=== PATIENT | female | born 2000 | race Caucasian/White ===

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

== ENCOUNTER 2024-05-13 01:17 | Outpatient (CLI) | payer OTHER, SELFPAY ==
--- OUTSIDE RECORDS SUMMARY | 2024-05-13 01:19 | XMS_ITS | Encounter Summary ---
Author Organization [facility] Address [facility] [place] [address] Care Team Providers Care Petroleum Inspector Supervisor Name Role Phone Geovanni Anderson MD Primary Care Provider [phone] Reason for Visit * Reason Comments Acne Encounter Details Date Type Department Care Team (Late st Contact Info) Description 12/18/2015 8:00 AM EST Office Visit Dermatology at [place] [address] [place] [id number] Johnny Felix MD [address] [facility] [place] [address] Acne vulgaris Social History Tobacco Use Types Packs/Day Years Used Date Smoking Tobacco: Never Assessed Sex and Gender Information Value Date Recorded Sex Assigned at Not on file Gender Identity Not on file Sexual Orientation Not on file documented as of this encounter Patient Instructions * Patient Instructions* Sheri Eddy LPN - 12/18/2015 8:12 AM EST Images from the original note were not included. [facility] Acne: After Your Visit Your Care Instructions Acne is a skin problem that shows up as blackheads, whiteheads, and pimples. It most often affects the face, neck, and upper body. Acne occurs when oil and skin cells clog the skin's pores. Acne usually starts during the teen years and often lasts into adulthood. Gentle cleansing every day controls most mild acne. If home treatment does not work, your doctor may prescribe creams, antibiotics, or a stronger medicine called isotretinoin. Sometimes control pills help women who havemonthly acne flare-ups. Follow-up care is a saavedra part of your treatment and safety. Be sure to make and go to all appointments, and call your doctor if you are having problems. It???s also a good idea to know your test results and keep a list of the medicines you take. How can you care for yourself at home? ?? Gently wash your face 1 or 2 times a day with warm (not hot) water and a mild soap or cleanser. Always rinse well. ?? Use an yuvz-[id number]-[id number] lotion or gel that contains benzoyl peroxide. Start with a small amount of 2.5% benzoyl peroxide and increase the strength as needed. Benzoyl peroxide works well for acne, but you may need to use it for up to 2 months before your acne starts to improve. ?? Apply acne cream, lotion, or gel to all the places you get pimples, blackheads, or whiteheads, not just where you have them now. Follow the instructions carefully. If your skin gets too dry and scaly or red and sore, reduce the amount. For the best results, apply medicines as directed. Try not to miss doses. ?? Do not squeeze or pick pimples and blackheads. This can cause infection and scarring. ?? Use only oil-free makeup, sunscreen, and other skin care products that will not clog your pores. ?? Wash your hair every day, and try to keep it off your face and shoulders. Consider pinning it back or cutting it short. When should you call for help? Watch closely for changes in your health, and be sure to contact your doctor if: ?? You have tried home treatment for 6 to 8 weeks and your acne is not better or gets worse. Your doctor may need to add to or change your treatment. ?? Your pimples become large and hard or filled with fluid. ?? Scars form after pimples heal. ?? You feel sad or hopeless, lack energy, or have other signs of depression while you are taking the prescription medicine isotretinoin. ?? You start to have other symptoms, such as facial hair growth in women or bone and muscle pain. Where can you learn more? Visit our health information library at [email or web address] You can also view health information on [employer] [place], your personal patient account. Log in or sign up today. Enter V108 in the search box to learn more about Acne: After Your Visit. ?? [id number] [employer]. Care instructions adapted under license by [facility]. This care instruction is for use with your licensed healthcare professional. If you have questions about a medical condition or this instruction, always ask your healthcare professional. [employer] disclaims any warranty or liability for your use of this information. Content Version: 10.4.382045; Current as of: January 04, 2014 documented in this encounter Progress Notes * Johnny Felix MD - 12/18/2015 8:25 AM EST Problem: Acne vulgaris. Donita is a 15-year-old girl who has started to develop significant acne on the forehead, lateral cheeks, upper back, and chest. She was given a prescription for tretinoin 0.05% gel by Kandi Middleton on November 27, 2015, but unfortunately has found this to be too drying and irritating. She has not been using it; she stopped it. Her mother, Harini, is with her and states that Donita' father apparently had bad acne as an adolescent. The patient is referred today by Kandi Middleton. Physical examination reveals a 15-year-old who is brown eyed and reddish-brown hair and very fair skin. She is wearing a generous amount of makeup and has inflammatory papules on the upper forehead, lateral temples, and also on the upper back and upper chest. Fortunately, these are not scarring; they are not cystic or conglobate lesions. She also has ynet-[id number]-[id number] inflammatory comedonal acne of the forehead and cheeks. Assessment and Plan: Acne vulgaris in a 15-year-old adolescent. a. The patient is using water-based makeup. b. She is using Neutrogena as a facial wash for her face. We discussed also the utility of Dove and Ivory fragrance-free bar soaps. c. I recommended that she begin minocycline 100 mg one p.o. at bedtime for a week, and then one p.o. b.i.d. thereafter; #60 dispensed with three refills. Return to clinic in six weeks for repeat check. d. Begin also benzoyl peroxide 2.5% to 5% cream, applying to face in the mornings after washing. e. Begin gentler tretinoin 0.025% cream, applying sparingly at bedtime to face one-half hour after washing in the evenings. f. Return to clinic in a month and a half for repeat check. COPY: José Moore, INDUSTRIAL MECHANIC documented in this encounter Plan of Treatment Not on file documented as of this encounter Visit Diagnoses Diagnosis Acne vulgaris Other acne documented in this encounter Care Teams Petroleum Inspector Supervisor Relationship Specialty Start Date End Date Geovanni Anderson MD [address] [place] [address] PCP - General Pediatrics 12/18/15 03/10/22 documented as of this encounter
--- OUTSIDE RECORDS SUMMARY | 2024-05-13 01:19 | XMS_ITS | Encounter Summary ---
Author Organization [facility] Address [facility] [place] [address] Care Team Providers Care Political Research Scientist Name Role Phone Geovanni Anderson MD Primary Care Provider Reason for Visit * Reason Comments Follow-up Encounter Details Date Type Department Care Team (Late st Contact Info) Description 10/13/2016 4:15 PM EST Office Visit Dermatology at [place] [address] [facility] [place] [phone] Johnny Felix MD [address] [facility] [place] [place], [place] [id number] Acne vulgaris Social History Tobacco Use Types Packs/Day Years Used Date Smoking Tobacco: Never Sex and Gender Information Value Date Recorded Sex Assigned at Not on file Gender Identity Not on file Sexual Orientation Not on file documented as of this encounter Progress Notes * Johnny Felix MD - 10/13/2016 4:15 PM EST PROBLEM: Followup acne vulgaris. Donita follows up with her mother Gabriela. She has not used her acne medicines for about a month, neither the minocycline, nor the tretinoin cream and her acne has remained clear, which as it has really ever since I saw her last when I had her using both of these things in combination on a more regular basis. PHYSICAL EXAMINATION: Reveals a pleasant 16-year-old who is brown eyed and reddish brown hair and very fair skinned, who has no active acne on the forehead, cheeks or temples. She has a few erythematous macules still present on her upper back and upper chest, but they are not active and certainly not scarring. ASSESSMENT AND PLAN: Acne vulgaris in a 16-year-old currently quiescent. a. Agree with holding minocycline and holding tretinoin. b. In case of recurrence, go back to minocycline 100 mg p.o. daily. c. In case of recurrence, also resume tretinoin 0.025% cream applying to her chest regularly. d. The patient is currently using a medicated acne wash, continue with that. Return to clinic her p.r.n. CC: Kandi Middleton APRN, SMOKE AND FLAME SPECIALIST documented in this encounter Plan of Treatment Not on file documented as of this encounter Visit Diagnoses Diagnosis Acne vulgaris Other acne documented in this encounter Care Teams Political Research Scientist Relationship Specialty Start Date End Date Geovanni Anderson MD [address] [place] [address] PCP - General Pediatrics 12/18/15 03/10/22 documented as of this encounter
--- OUTSIDE RECORDS SUMMARY | 2024-05-13 01:19 | XMS_ITS | Encounter Summary ---
Author Organization Formerly [facility], [facility] Address [facility] [place] [address] Care Team Providers Care Roundhouse Supervisor Name Role Phone Geovanni Anderson MD Primary Care Provider [phone] Reason for Visit * Consultation (Routine) - Closed Specialty Diagnoses / Procedures Referred By Contac t Referred To Contact Psychiatry Diagnoses anxiety and depression Jennifer Singh MD [address] [place] [address] [place] [address] [facility] [address] [place] [address] Referral ID Status Reason Start Date Expiration Date V isits Requested Visits Authorized [id number] Closed Consult, [facility] 09/03/2017 09/03/2018 1 1 Encounter Details Date Type Department Care Team (Late st Contact Info) Description 09/24/2017 1:00 PM EST Office Visit Psychiatry [place] [address] Katty Gilliland MD [facility] [place] [address] Depression, unspecified depression type; Anxiety Social History Tobacco Use Types Packs/Day Years Used Date Smoking Tobacco: Never Sex and Gender Information Value Date Recorded Sex Assigned at Not on file Gender Identity Not on file Sexual Orientation Not on file documented as of this encounter Last Filed Vital Signs Vital Sign Reading Time Taken Comments Blood Pressure 105/63 09/24/2017 12:42 PM EST Pulse 76 09/24/2017 12:42 PM EST Temperature - - Respiratory Rate - - Oxygen Saturation - - Inhaled Oxygen Concentration - - Weight 72.6 kg (160 lb) 09/24/2017 12:42 PM EST Height 166.4 cm (5' 5.5) 09/24/2017 12:42 PM ES T Body Mass Index 26.22 09/24/2017 12:42 PM EST Body Mass Index Percentile 88.63% 09/24/2017 12: 42 PM EST Growth Chart: [facility] (Girls, 2- 20 Years) documented in this encounter Progress Notes * Katty Gilliland MD - 09/24/2017 1:00 PM EST PSYCHIATRIC DIAGNOSTIC EVALUATION WITH MEDICAL SERVICES (CPT 94250) Patient Name: Donita Anne : 2000 Location and Clinic: Child Psychiatry 5D Clinic Encounter Date: 09/24/2017 Examining Provider: Katty Gilliland M.D. (resident) and Bre Luevano M.D. (attending) Referring Provider: Jennifer Singh MD Primary Physician: Geovanni Anderson MD Information Source: Patient. Jalyn Anne (biological parents). Completed C&E packet. Guardian: Jalyn Carloson and Jovani Omid Patient Identification: Donita Anne is a 17 y.o. female from [place], [place]. She is in the 11th grade at [employer]. Donita was referred for evaluation of anxiety and depression. History of Present Illness: Donita states that she experiences intense anxiety, without trigger. She describes feeling panic,choked up, like crying, and unable to stop. She does not want to cry in front of peers/ teachers. As a result, she has missed many days of school (26) this year and is falling behind. She has been able to work shifts at [employer], noting the difference is the people [at work and at school]. She denies any bullying or problems with classmates. She has close girlfriends at school and is in a currently stable relationship with a boyfriend of 2.5 years. Regarding depressive symptoms, she endorses unexplainable, low mood daily, with passive suicidal thoughts of wanting to disappear at least once weekly. These feelings are difficult for her to explore and/or verbalize, but she agrees that she is equally depressed as she is anxious. She has a history of cutting on and off since she was 13 years old, last episode over 6 months ago. She convincingly denies plan, intent, or a history of suicide attempts. Her sleep has always been poor in that she stays awake past midnight and sleeps about 5- 6 hours nightly, interrupted. No history of sustained irritable mood, manic symptoms, temper outbursts, obsessions/compulsions, disordered eating, enuresis, encopresis, abnormal or involuntary movements, psychosis, sleep disturbance or other psychiatric symptoms except for those noted above. Donita does not participate in any school activities since attending [employer], which eliza much larger high school than her former middle school. She works at [employer] about 20 hours per week (short 2 hour shifts during weekdays and longer shifts on weekends), during which she is the [employer] piest. Otherwise, after school, she largely isolates in her room with her iPad (school work is electronically based) and phone. She has been sexually active with her boyfriend since spring 2015 and reports practice of safe intercourse. No alcohol (has tried in the past) or illicit drug use were elicited. On full review of medical treatment, Donita has not been using tretinoin for acne and her menstrual cycle has been irregular (unpredictable timing and duration) after receiving the Nexplanon implant in fall 2015. Donita's parents confirm the above information. Of note, they report noticing a change spring 2016, during which Donita missed two consecutive weeks of school after a temporary break up with her boyfriend. This year, she has missed 26 days! according to her mother. Donita has not seemingly had problems with school until this year. Her parents did not report significant psychiatric symptoms observed; Donita has been isolative and does not share her feelings. The history of cutting was recalled toward the end of the interview. Donita's mother states that she herself similarly had a rough adolescent transition and reports on the family history documented below. Both Donita and her parents are amenable to a trial of SSRI medication, of which indications and benefits/side effects were reviewed. Screening Assessments: Donita and Donita's parents completed various behavioral health screening instruments. Additionally Donita's teacher(s) completed the [place]. Measure Symptoms Cut-off Parent: (Mom) Parent: (Dad) Patient: Teacher: Teacher: CIS Impairment >[phone] 0 0 [place] Inattention >5 0 2 6 Hyperactivity >5 0 0 0 ODD >3 4 CD >2 1 ODD/CD >2 0 0 Aggression >0 0 0 0 Anxiety/Depression >2 5 6 1 MFQ Depression >7 10 14 Suicidality >0 0 4 PHQ-9 Total Score >9 3 19 Suicidality >0 0 1 MDQ Rowena >4 1 1 Simultaneous sx? Yes No No Severity Yes No No Psychosis >0 0 0 Anxiety Anxiety sx >3 3 0 OCD sx >0 0 0 TESI Trauma >0 0 AQ Autism sx >5 CRAFFT Risk behaviors >0 0 Psychiatric and Treatment History: Donita started seeing a therapist since the 8th grade, after experiencing bullying and engaging in cutting. She currently sees Cheyenne Gurrola in [facility] (since 2015). She has a history of cutting since age 13 (8th grade), most recent episode was early 2017. Diagnoses: None No prior hospitalizations. No suicide attempts. Past/Current medication trials: None No ETOH, tobacco, or illicit substance use. Medical History: Donita is prescribed minocycline and tretinoin since 2015 for acne, with rare/if at all use. Donita received a subdermal Nexplanon implant, for control in fall 2015. She reports extremelyirregular cycles since the implant. Family Psychiatric and Medical History: Biological Mother: she reports history of depression, anxiety, mood swings, history of baby blues; in psychotherapy, took Paxil in the past, reacted to Prozac (more angry, throwing items), currently taking citalopram, bupropion, recently started on lamotrigine Biological Father: none reported Biological Brother: attention problems reported by mother No family history of bipolar disorder, schizophrenia, substance use disorder, or completed suicides. No family history of sudden, unexplained deaths, cardiac disease, seizures, or diabetes mellitus. Family Profile & Living Situation: Donita lives in [facility] with her biological (unmarried) parents and 15 year-old biological brother. Her mother works as a [facility] [facility] [employer] clinical administrative secretary and her father works as a quick. Donita denies any relational problems at home. Development History: Donita is the product of a full-term and spontaneous vaginal delivery. weight was 7lbs 14 ounces. No in utero exposures or significant maternal illnesses during . Early developmental milestones, including first words, first sentences, walking, and toilet training were all reached within normal limits. Trauma/Abuse History: Donita denies a history of neglect and emotional, physical, and sexual abuse. This was confirmed in interview alone. Family denies any history of abuse. School History: Donita is in 11th grade at [employer]. She has not received IEP or 504 plan; a 504 plan was started in August 2017 to facilitate her passing of classes due to absences. She has good friends at school. Current Medications: Outpatient Prescriptions Marked as Taking for the 09/24/17 encounter (Office Visit) with Katty Gilliland MD Medication Sig Dispense Refill ??? etonogestrel (NEXPLANON) 68 mg Implant by Subdermal route. ??? minocycline (MINOCIN;DYNACIN) 100 mg Capsule take 1 capsule by mouth twice a day 0 ??? tretinoin (RETIN-A) 0.025 % Cream 0 Allergies: No Known Allergies Vitals: Vitals Office Visit from 09/24/2017 in Psychiatry and Behavioral Health at [place] Weight - Scale 72.6 kg (160 lb) Height 166.4 cm (5' 5.5) BSA (Calculated - sq m) 1.83 sq meters BMI (Calculated) 26.22 Heart Rate 76 BP 105/63 Musculoskeletal Exam: No overt signs of atrophy. Normal gait and station. Neurological Exam: No tics, tremors. Cranial nerves grossly intact with no overt asymmetries. Mental Status Examination: Donita is a 17 y.o. female who appears older than her stated age, appropriately groomed and dressed in a sweatshirt, leggings, and boots, with heavy make up and red-dyed hair. She engages with good eye contact and is pleasant in conversation. Behavior is cooperative, mostly forthcoming. Activity level is within normal limits. Speech is normal in rate and volume without articulation problems, and language development is appropriate. There are no vocal or motor tics noted. Age-appropriate gross and motor coordination. Mood is presently ???okay?? . Affect appears mood-congruent, mildly restricted, but reactive to content. She becomes teary-eyed when she has difficulty describing [her] feelings.?? Sensorium is alert and oriented to person, place, and time. Recent and remote memory are grosslyintact. Fund of knowledge is average. Attends to conversation without difficultly. Concentration isgood. Thought processes are goal directed, logical, and coherent. There are no looseness or associations or flight of ideas. No delusional or obsessive thoughts were elicited. There are no overt auditory or visual hallucinations observed. Denies suicidal or homicidal ideations. Her insight and judgment are fair and fair. Assessment and Formulation: Donita Anne is a 17 y.o. female with symptoms of depression and anxiety, who presents for consultation for psychotropic medications. Biologically, she has a strong maternal family history that may be contributing to the emergence of mood symptoms causing dysfunction. Over the past year, Donita hasbecome more isolative, sad or panicked for seemingly no reason, perhaps over-relying on avoidanceand/or distraction of media/social media to cope with emotional and relationship struggles. Psychotherapy is helpful for Donita and has reportedly produced fair results. The patient and her parents, after speaking with her therapist and PCP, feel that she could benefit from the aid of antidepressant medication to help with her progress. During this visit, we discussed a multimodal approach to treatment of Donita's depression and anxiety. They are interested in starting a SSRI trial of sertraline and monitor symptoms while continuing individual therapy. DSM 5 Diagnoses: Unspecified depressive disorder; unspecified anxiety disorder Recommendations and Plan: 1. Psychosocial Interventions ?? Individual Therapy: It is recommended that Donita continue to address her symptoms of anxiety anddepression. Cognitive-Behavioral Therapy (CBT) has the most empirical support for helping children and adolescents improve coping skills and reduce symptoms. This type of treatment is typically time-limited and will provide Donita with strategies that can be used across her lifetime. The family has been encouraged to share this evaluation with Donita's current therapist. ?? If her current therapist has more information to share, it is encouraged that she may reach out to this office. Written consent was provided today. ?? It is recommended that Donita attempt to attend school on days that she will also be working after school, as there may be consequences and risks of truancy charge. 2. Medications ?? Start sertraline 25mg daily to monitor for any gastrointestinal, activating, or sedating side effects. After a week, may increase to sertraline 50mg daily and continue for 6-8 weeks. May consider increasing to sertraline 100mg daily for a full trial of efficacy. ?? These recommendations will be communicated to Donita's PCP. The family was encouraged to follow up with Dr. Singh/Emi/Justin to further discuss these recommendations. 3. Academic Interventions ?? Donita is experiencing difficulties within the school environment. These difficulties are likely due to Donita's anxiety, and are likely to persist even with continued mental health treatment. The severity of Donita's difficulties may be impacting their academic and/or social development. Thus, it recommended that Donita be evaluated for her eligibility for accommodations or special educational services ?? Reportedly, a 504 plan has recently been started to facilitate passing classes due to absence. Recommended Follow-Up: This concludes Donita's evaluation in the child and adolescent psychiatry clinic here at [facility]. Theserecommendations will be communicated to Donita's PCP, Geovanni Anderson MD/ Kandi Middleton/Jennifer Singh. If additional questions or concerns arise in the future, we would be willing to see Donita again in consultation and/or review her response to the recommendations. Patient Instruction/Education Provided: Patient and her parents were provided verbal instructions regarding diagnosis and recommendations. * Bre Renee MD - 09/24/2017 1:00 PM EST I met with the patient and both parents, along with resident, Dr. Katty Gilliland I have reviewed the chart and read the resident's note. The assessment and plan were formulated in discussion with me and are documented in the note. I agree with the details as documented. Issues Addressed: Donita is a 17 years old female, [employer] Student, whom has been struggling with ongoing depression and anxiety despite consistent therapy. She presents referred by her PCP for consultation of her anxiety and depressive symptoms and recommendations for medication management. ??? We highly encouraged Donita to continue with individual therapy. ??? Discussed with the family the importance of having a plan for Donita to be reincorporated into school and be provided some supports. It would be important to identify why she has been avoiding school and is motivated and with a good attitude when it is related to work. The importance of Parentallimit setting as it relates to this ambivalent presentation was discussed. ??? Discussed with the family the synergistic effect that the combination of therapy and medications can have for her symptoms. Sertraline benefits and side effects as well as recommended titration under the supervision of their primary care providers. ??? Although this was a consultation for Donita, we encouraged them to have their rn clinical appeals or themselves reach out to our clinic in case there was any decompensation of the symptoms. Dr. Gilliland provided her card with her contact information. documented in this encounter Plan of Treatment Not on file documented as of this encounter Visit Diagnoses Diagnosis Depression, unspecified depression type Anxiety Anxiety state, unspecified documented in this encounter Care Teams Roundhouse Supervisor Relationship Specialty Start Date End Date Geovanni Anderson MD [address] [place] [address] PCP - General Pediatrics 12/18/15 03/10/22 documented as of this encounter
--- OUTSIDE RECORDS SUMMARY | 2024-05-13 01:19 | XMS_ITS | Encounter Summary ---
Author Organization [facility] Address [facility] [place] [address] Care Team Providers Care Reception Interviewer Name Role Phone Geovanni Anderson MD Primary Care Provider [phone] Reason for Visit * Reason Comments Acne Encounter Details Date Type Department Care Team (Late st Contact Info) Description 02/14/2016 4:45 PM EDT Office Visit Dermatology at [place] [address] [place] [address] Johnny Felix MD [address] [facility] [place], [place] [id number] Acne vulgaris Social History Tobacco Use Types Packs/Day Years Used Date Smoking Tobacco: Never Sex and Gender Information Value Date Recorded Sex Assigned at Not on file Gender Identity Not on file Sexual Orientation Not on file documented as of this encounter Progress Notes * Johnny Felix MD - 02/14/2016 4:55 PM EDT Problem: Followup acne vulgaris. Donita follows up today with her mother, Harini. She is doing better but still is having issues with her back and chest, less so on her forehead and cheeks. She is tolerating the tretinoin 0.025% cream well but has not yet found a benzoyl peroxide cream to use for her face. She has been tolerating the minocycline 100 mg one p.o. b.i.d. without side effects. Physical examination reveals a pleasant 15-year-old who is brown eyed and reddish brown hair and very fair skinned who has still a few inflammatory papules on the forehead but few on the temples and cheeks. She still has some inflammatory lesions on the upper back and upper chest. They are not scarring, and they are not cystic nor conglobate. The mild to moderate inflammatory comedonal acne of the forehead and cheeks is improved. Assessment and Plan: Acne vulgaris in a 15-year-old adolescent. a. The patient is using water-based makeup. b. Recommend that she obtain a benzoyl peroxide, either 2.5 or 5% water-based gel, applying to face in the morning after washing. c. Continue the tretinoin 0.025% cream, applying at bedtime to face. d. Continue minocycline. She has two more refills. Continue the 100 mg one p.o. b.i.d. for another two months, then return to clinic for repeat check. e. If not improving at that time, could consider a trial of Bactrim. Isotretinoin was not discussed today but would also be a potential option for her. Note: Oral control pills for acne control might also be expected to be quite efficacious for her. We will discuss this option with Kandi Emi if there has not been improvement by the time of her next visit. COPY: Kandi Middleton, Kelsy.P.RDesN., F.N.P. documented in this encounter Plan of Treatment Not on file documented as of this encounter Visit Diagnoses Diagnosis Acne vulgaris Other acne documented in this encounter Care Teams Reception Interviewer Relationship Specialty Start Date End Date Geovanni Anderson MD [address] [place] [address] [place] [address] PCP - General Pediatrics 12/18/15 03/10/22 documented as of this encounter
--- OUTSIDE RECORDS SUMMARY | 2024-05-13 01:19 | XMS_ITS | Clinical Summary ---
Author Organization [place] [address] Care Team Providers Care Drupal Php Developer Name Role Phone Unknown Primary Care Provider Unavailabl e Allergies No known active allergies Medications Medication Sig Dispensed Refills Start Date End Date Status tretinoin (RETIN-A) 0.025 % Cream 0 01/29/2016 Active minocycline (MINOCIN;DYNACIN) 100 mg Capsule take 1 capsule by mouth twice a day 0 06/13/2016 Active etonogestrel (NEXPLANON) 68 mg Implant by Subdermal route. Activ e Active Problems No known active problems Social History Tobacco Use Types Packs/Day Years Used Date Smoking Tobacco: Never Sex and Gender Information Value Date Recorded Sex Assigned at Not on file Gender Identity Not on file Sexual Orientation Not on file Last Filed Vital Signs Vital Sign Reading [...] Mass Index 26.22 09/24/2017 12:42 PM EST Plan of Treatment Health Maintenance Due Date Last Done Comments Chlamydia Screening 2015 HPV vaccine (1 - 3-dose series) 2015 HIV screen 2018 Hepatitis C Screening 2018 Hepatitis B vaccine (0-59 yrs) (1) 2019 Tdap adult 2019 Tetanus vaccine 2019 PAP Smear 2021 Covid-19 Vaccine (1 - 2022-24 season) 2023 Influenza (Flu) vaccine (1 o f 1 - Influenza standard series) 06/26/2024 Care Teams Drupal Php Developer Relationship Specialty Start Date End Date Unknown None PCP - General 03/11/22
--- OUTSIDE RECORDS SUMMARY | 2024-05-13 01:19 | XMS_ITS | Encounter Summary ---
Author Organization [facility] Address [facility] [place] [address] Care Team Providers Care Spool Cleaner Hand Name Role Phone Geovanni Anderson MD Primary Care Provider [phone] Encounter Details Date Type Department Care Team (Late st Contact Info) Description 04/17/2016 4:30 PM EDT Office Visit Dermatology at [place] [address] [place] [address] Johnny Felix MD [address] [facility] [place], [place] [id number] Acne vulgaris Social History Tobacco Use Types Packs/Day Years Used Date Smoking Tobacco: Never Sex and Gender Information Value Date Recorded Sex Assigned at Not on file Gender Identity Not on file Sexual Orientation Not on file documented as of this encounter Progress Notes * Johnny Felix MD - 04/17/2016 5:40 PM EDT Problem: Followup acne vulgaris. Donita follows up with her mother, Harini. Her acne is doing much better. This despite the fact that she has really been only partially compliant with her regimen, taking minocycline once a day instead of two times a day, if at all, and sometimes applying the tretinoin cream occasionally. She has some benzoyl peroxide that she applies to her face, but not to her shoulders or back, which is what we had discussed doing. Perhaps this explains why her facial acne is much better but she still has some on the shoulders and back. Physical examination reveals a pleasant 15-year-old who is brown eyed and reddish brown hair and very fair skin, who has today no remaining acne on the forehead, cheeks, or temples. She does have mild inflammatory acne lesions on the upper back and upper chest. They are not scarring. They are not cystic or conglobate. Assessment and Plan: Acne vulgaris in a 15-year-old adolescent, facial involvement cleared, still with inflammatory involvement on shoulders and back. a. Continue using benzoyl peroxide, but now also apply to shoulders and back. Recommend water-based gel. Warned her against the bleaching effect of peroxide. b. Attempt to use tretinoin cream 0.025% cream q.h.s. regularly. c. Recommend using the minocycline [address] the bottle in the bathroom near her toothbrush so this will remind her to take it on a regular basis. Currently it is on the windowsill in the kitchen. d. No need to advance to Bactrim. No need to consider oral control pills. e. Also discussed getting a little bit of sun this summer, which will be quite beneficial for her shoulders and back in clearing her acne. Return to clinic in another six months for repeat check. Patient and mother both congratulated on her interval improvement. COPY: Kandi Middleton A.P.R.N., F.N.P. documented in this encounter Plan of Treatment Not on file documented as of this encounter Visit Diagnoses Diagnosis Acne vulgaris Other acne documented in this encounter Care Teams Spool Cleaner Hand Relationship Specialty Start Date End Date Geovanni Anderson MD [address] [place] [address] PCP - General Pediatrics 12/18/15 03/10/22 documented as of this encounter
[2024-05-13 23:20] LABS: Hepatitis C Ab w Rflx HCV PCR Negative (Negative)
[2024-05-13 23:28] LABS: HIV-1/2 Ag & Ab Screen Negative (Negative)
[2024-05-16 12:07] LABS: Syphilis Serology (RPR) Negative (Negative)
== END 2024-05-13 01:18 | disposition home or self-care (01) ==
LOC: LBO 01:17
PROVIDERS: PCP Nurse Practitioner Adult Health; Referring Provider Nurse Practitioner Adult Health; Visit Provider Nurse Practitioner Adult Health
DX: Z11.3 Encounter for screening for infections with a predominantly sexual mode of transmission (principal)
CPT/HCPCS: 36415; 86803; 87389; 86592

== ENCOUNTER 2024-06-24 11:52 | Outpatient (REF) | payer OTHER, SELFPAY ==
--- NOTE | 2024-06-24 11:15 | PAPFT_PTH ---
PATIENT: Donita Anne LOC: [facility] U#:[id number] AGE/SX: 23/F ROOM: RE06/24/[address]: Theresa Laughlin DO : 2000 BED: DIS: 06/24/2024 SPEC #: [id number] RECD: 06/24/24 13:24 STATUS: JOSE ANTONIO REQ #: [id number] ASHISH: 06/24/24 11:[address]: Theresa Laughlin DEPT: [facility] Cytology RECD BY: Vale Celeste ENTERED: 06/24/24 13:25 SP TYPE: PAPFT OTHR DR: Aziza Conley APRN Tissues: 1 - CX/ENDOCX FOR PAP SMEARS Procedures: PAP THIN PREP/UVM Screening HPV DNA PROBE Comments: [id number] (HPV 16 & 18/45) (CHLAMYDIA/GC)
[2024-06-27 12:55] LABS: GC Result Negative (Negative)
[2024-06-27 13:51] LABS: Chlamydia Result Positive (Negative)
== END 2024-06-24 11:53 | disposition home or self-care (01) ==
LOC: LBN 11:52
PROVIDERS: PCP Nurse Practitioner Adult Health; Visit Provider Obstetrics & Gynecology
DX: Z01.419 Encounter for gynecological examination (general) (routine) without abnormal findings (principal)
CPT/HCPCS: 87491; 87591; 88142; 87624

== ENCOUNTER 2024-07-22 11:05 | Outpatient (REF) | payer OTHER, SELFPAY ==
[2024-07-25 11:59] LABS: Chlamydia Result Negative (Negative); GC Result Negative (Negative)
== END 2024-07-22 11:06 | disposition home or self-care (01) ==
LOC: LBN 11:05
PROVIDERS: PCP Nurse Practitioner Adult Health; Visit Provider Obstetrics & Gynecology
DX: A74.9 Chlamydial infection, unspecified (principal)
CPT/HCPCS: 87491; 87591

== ENCOUNTER 2024-10-03 16:31 | Outpatient (REF) | payer OTHER, SELFPAY ==
[2024-10-05 11:48] LABS: Chlamydia Result Negative (Negative); GC Result Negative (Negative)
== END 2024-10-03 16:32 | disposition home or self-care (01) ==
LOC: LBN 16:31
PROVIDERS: PCP Nurse Practitioner Adult Health; Visit Provider Nurse Practitioner Adult Health
DX: Z11.3 Encounter for screening for infections with a predominantly sexual mode of transmission (principal)
CPT/HCPCS: 87491; 87591; 87480; 87510; 87660

== ENCOUNTER 2024-12-29 02:57 | Outpatient (CLI) | payer OTHER, SELFPAY ==
[2024-12-30 10:28] LABS: HSV Type 1 Ab, IgG Negative (Negative); HSV Type 2 Ab, IgG Negative (Negative)
[2024-12-30 11:57] LABS: Hepatitis C Ab w Rflx HCV PCR Negative (Negative)
[2024-12-30 12:10] LABS: HIV-1/2 Ag & Ab Screen Negative (Negative)
== END 2024-12-29 02:58 | disposition home or self-care (01) ==
PROVIDERS: PCP Nurse Practitioner Adult Health; Referring Provider Nurse Practitioner Adult Health; Visit Provider Nurse Practitioner Adult Health
DX: Z11.3 Encounter for screening for infections with a predominantly sexual mode of transmission (principal)
CPT/HCPCS: 36415; 86803; 87389; 86695; 86696

== ENCOUNTER 2025-02-23 13:58 | Outpatient (REF) | payer OTHER, SELFPAY ==
[2025-02-24 12:01] LABS: Chlamydia Result Negative (Negative); GC Result Negative (Negative)
== END 2025-02-23 13:59 | disposition home or self-care (01) ==
LOC: LBN 13:58
PROVIDERS: PCP Nurse Practitioner Adult Health; Visit Provider Nurse Practitioner Adult Health
DX: Z11.3 Encounter for screening for infections with a predominantly sexual mode of transmission (principal)
CPT/HCPCS: 87491; 87591; 87480; 87510; 87660

== ENCOUNTER 2025-02-23 14:08 | Outpatient (CLI) | payer OTHER, SELFPAY ==
[2025-02-23 23:38] LABS: HIV-1/2 Ag & Ab Screen Negative (Negative)
[2025-02-23 23:50] LABS: Hepatitis C Ab w Rflx HCV PCR Negative (Negative)
[2025-02-24 12:20] LABS: Syphilis Serology (RPR) Negative (Negative)
== END 2025-02-23 14:09 | disposition home or self-care (01) ==
LOC: LBO 14:10
PROVIDERS: PCP Nurse Practitioner Adult Health; Visit Provider Nurse Practitioner Adult Health
DX: Z11.3 Encounter for screening for infections with a predominantly sexual mode of transmission (principal)
CPT/HCPCS: 36415; 86803; 87389; 87491; 87591; 86592

== ENCOUNTER 2025-05-24 14:19 | Emergency (ER) | payer OTHER, SELFPAY ==
[2025-05-24 14:24] VITALS: BP 130/100; PULSE 80; RESP 20; TEMP 36.7; O2SAT 98
[2025-05-24] MEDS: Ondansetron O.D.T. 4 MG TABEF PO (14:47)
[2025-05-24] MEDS: Acetaminophen 500 MG TAB 1000 MG PO (14:48)
--- NOTE | 2025-05-24 14:53 | DI.US_ITS ---
Exam(s) US OB 1ST TRIMESTER EXAM: US OB 1ST TRIMESTER CLINICAL HISTORY: Cramping, early preg, eval ectopic. TECHNIQUE: First trimester obstetrical ultrasound was performed. Both transabdominal and transvaginal pelvic ultrasound exams were performed COMPARISON: US POCUS EXAM from 05/24/2025 FINDINGS: There is an intrauterine gestational sac which contains a yolk sac which exhibits a 4 mm diameter. A true delineate able pole is not obviously evident on today's study, probably too early. Gestational sac measurement is 19 mm correspond to 6 weeks and 2 days Maternal ovaries: Right ovary measures 3.5 x 2.2 x 2.7 cm and contains a corpus luteal cyst measuring 1.9 x 1.8 x 2.2 cm. Left ovary measures 2.4 x 1.9 x 1.7 cm. There is no fluid in the cul-de-sac and adnexal regions. IMPRESSION:: Intrauterine gestational sac which contains a yolk sac somewhat difficult to adequately delineated pole here. Gestational sac measurement corresponds to approximately 6 weeks and 2 days. Recommend repeat ultrasound in 1 week, earlier if clinically indicated DATA REPOSITORY:
--- NOTE | 2025-05-24 14:56 | W.ED.GENAD ---
Discharge Plan Disposition Patient Disposition: Home Condition: Stable Discharge Details Clinical Impression: Abdominal pain during Primary Care Provider: Aziza Conley ED Provider: Petrona Tabor Home Meds and New Rx's Prescriptions: No Action sertraline 50 mg tablet 50 mg PO DAILY Qty: 90 1RF Rx Instructions: Start with 1/2 tab daily and increase to 1 tab daily misoprostol .ROUTE mifepristone .ROUTE Discharge Instructions Instructions: Abdominal Pain, Adult ED Additional Instructions: You were seen in the emergency department today for evaluation of abdominal cramping during early . In our department a full physical examination performed, had laboratory studies that were reassuring though your hormone is still quite elevated. You had an ultrasound that did not show any evidence of ectopic . You need to follow-up with the [facility] team in the next few days for reassessment, to ensure that the has entirely passed after taking your misoprostol and mifepristone. They may do further studies and make recommendations for next steps to manage your . Please use therapeutic dosing of Tylenol (acetaminophen) & Advil (ibuprofen) in an alternating fashion as follows: Take 1000mg of Tylenol every 6 hours without missing doses- that is 4 times per day. [place] in between the Tylenol doses, take 600mg of Advil also on a 6 hour schedule, that is also 4 times per day. With this strategy, you will be taking something for fever/pain as often as every 3 hours. The daily maximum dosing of Tylenol is 4000mg, and the daily maximum dosing of Advil is 2400mg. Please note that some common cold medications & prescription pain medications may contain acetaminophen and you need to read OTC drug labels and factor that in to maximum daily doses. Please return to the emergency department with sudden or severe change or worsening of your pain, nausea or vomiting that prevents eating or drinking, or if you begin to have vaginal bleeding that saturates a pad per hour for more than 2 hours. Please follow-up with your primary care provider in the next few days to discuss this visit and any symptoms that change, worsen, or persist. Thank you for allowing us to be part of your care. Discharge Data Discharge Date/Time-TO BE ENTERED AT DEPARTURE: 05/24/25 18:29 HPI General Mode of arrival: ambulatory. Date/Time Provider Initiated Documentation: 05/24/25 14:34. Limitations to Documentation: no limitations. Information obtained by: patient and old records reviewed. HPI Narrative: This is a 24-year-old female patient, G1, P0 at an estimated 6 weeks gestation by last menstrual period, presenting for evaluation of abdominal cramping. The patient reports that she started to experience lower abdominal cramping very early in her , and this was actually the symptom that prompted her to take an at home test. She reports that she has been managing her symptoms with Tylenol and ibuprofen. She has not had vomiting but she has felt nauseated. She has no vaginal discharge or vaginal bleeding. She is undergoing a medical with misoprostol and mifepristone, and took her first doses of these medications around lunchtime. She reports that she is presenting for worsening cramping and pain, though she states that the symptoms were present prior to her taking the medications. Related Data Home Medications ?Medication ?Instructions ?Recorded ?Confirmed sertraline 50 mg tablet 50 mg PO DAILY #90 tabs 02/23/25 05/24/25 Held on 05/24/25. Instructions: Pt Stopped/Never Started mifepristone .ROUTE 05/24/25 misoprostol .ROUTE 05/24/25 Previous Rx's ?Medication ?Instructions ?Recorded sertraline 50 mg tablet 50 mg PO DAILY #90 tabs 02/23/25 Held on 05/24/25. Instructions: Pt Stopped/Never Started Allergies Allergy/AdvReac Type Severity Reaction Status Date / Time No Known Allergies Allergy Verified 05/24/25 14:22 General Stated Complaint: [facility] EUNICE: 3 Exam Narrative Exam Narrative: Gen: Awake and alert, in no apparent distress HEENT: Non-icteric sclera Neck: Supple Lungs: No apparent respiratory distress, normal respiratory effort. CV: Appears well perfused Abdomen: Non-distended, soft, tender to palpation in bilateral pelvic region without rigidity, rebound, or guarding MSK: Moves 4 extremities without apparent limitation in ROM Skin: Visualized skin without rashes, cyanosis. Neuro: Normal Gait, no obvious focal deficits or facial asymmetry. Speaks in full, clear sentences. Psych: Appropriate for situation. Course Vital Signs Vital signs: Vital Signs Temperature 36.7 C 05/24/25 14:24 Pulse 80 05/24/25 14:24 Respiratory Rate 20 05/24/25 14:24 Blood Pressure 130/100 H 05/24/25 14:24 Pulse Oximetry 98 05/24/25 14:24 Temperature 36.7 C 05/24/25 14:24 Temperature Source Oral 05/24/25 14:24 Pulse 80 05/24/25 14:24 Respiratory Rate 20 05/24/25 14:24 Blood Pressure 130/100 H 05/24/25 14:24 Blood Pressure Position Sitting 05/24/25 14:24 Pulse Oximetry 98 05/24/25 14:24 Oxygen Delivery Method Room Air 05/24/25 14:24 Oxygen Flow Rate 0 05/24/25 14:24 Pain Level 6 05/24/25 14:48 Medical Decision Making This is a 24-year-old female patient presenting for evaluation of abdominal cramping in early . Differential includes but is not limited to ectopic , certainly considered intrauterine early , /miscarriage including threatened, complete, incomplete, but the patient has not had no passage of products or vaginal bleeding. Considered ovarian pathology including cyst and torsion. History less concerning for PID/TOA. I am reassured that the patient is hemodynamically appropriate, and performed a bedside ultrasound that did show a gestational sac and no free fluid in the pelvis nor right and left upper quadrants. We will obtain a formal ultrasound. I will obtain laboratory studies to include CBC, CMP, magnesium, and beta quant. I will provide the patient with Tylenol and Zofran for symptomatic management. - I independently interpreted the laboratory studies, which show no significant leukocytosis, anemia, or thrombocytopenia. The chemistry panel is without evidence of electrolyte abnormality, kidney dysfunction, or liver injury. Beta quant elevated to 3500. Formal ultrasound obtained which shows a gestational sac and yolk sac, no definitive pole. The patient was counseled on continued Tylenol and ibuprofen, she is tolerating oral intake and does not have any vaginal bleeding. I have placed a referral for her to be seen in the [facility] clinic within the next few days for reassessment. If she continues to desire termination of she may require further intervention if medical is not successful. We had an extended conversation regarding return precautions, including onset of vaginal bleeding, sudden change or worsening of her abdominal pain, nausea or vomiting that prevents eating and drinking. At this time, the patient has had a full medical evaluation and is safe for discharge to home. They are hemodynamically stable, ambulatory, and tolerating PO. They are understanding of the follow-up plan and return precautions. They left our facility without incident. Petrona Tabor MD Quality:[facility] Health Related Social Needs: Health related social needs details N/A PFSH All Active Problems (Updated 05/24/25 @ 18:03 by Petrona Tabor MD) Abdominal pain during (Acute) Adjustment disorder with anxiety (Acute ~09/2024) Alcohol consumption binge drinking (Acute) Nicotine use disorder (Chronic) Vapes nicotine products Counseling on substance use and abuse (Acute 06/08/18) marijuana (2017) + EtOH (2023 +DUI--second one) BMI (body mass index), pediatric, 85% to less than 95% for age (Acute 11/08/14) Acne (Acute 11/27/15) followed in past by derm- had used minocycline 100 BID Medical History (Updated 05/24/25 @ 18:03 by Petrona Tabor MD) Nexplanon removal (~06/2024) Well adolescent visit (05/11/18) Hematoma and contusion Soft tissue injury Trauma Self-injurious behavior (11/08/14) cutting Depression with anxiety Vaginal discharge Wears glasses Wears contact lenses Depression or Anxiety (unspecified) Surgical History H/O wisdom tooth extraction Family History Mother Mental disorder anxiety/depression Father Hypertension Other Diabetes MGF, mat great GM Essential hypertension MGF Hyperlipidemia MGM, MGF Grandparent Hyperlipidemia Hypertension Maternal Grandfather Lung cancer Diabetes Social History Smoking/Tobacco Use Status: Current every day Tobacco Type: cigarettes Quit status: not considering quitting Smoking risk assessment performed?: Yes Alcohol Intake: never Drug use: Daily Substance use type: marijuana Adopted: No Caregiver/Support person: No Foster care: No Household members: family Housing: house Number of Children: 0 Communication Needs: Corrective Lenses Education Level: vocational Do you need help understanding health information?: Never current occupation: [employer] Pets and animals: Yes (6 cats, 2 dogs) Pets and animals: cat(s) and dog(s) Sexually active: Yes Do you think of yourself as: bisexual Current gender identity: female What is your relationship status?: never How often do you talk on the phone with friends or family?: never How often do you get together with friends or relatives?: once per week How often do you attend baptism or hinduism services?: decline to answer Do you belong to any clubs or organized social groups?: no Panel score (0-1 are the most socially isolated patients): 0 What type of physical activity do you participate in: none Duration: decline to answer Frequency: decline to answer Seatbelt use: always Helmet use: No (N/A) Drive intox or ride w/intox driver helper: No Additional Social history: lives w/ parents student at [employer] [place] works / time @ [employer] Female Reproductive History Menstrual Age of Menarche: 13 POCUS Exam (ED) Limited OB Exam DATE OF EXAM:: 05/24/25 TIME OF EXAM:: 14:45 PROVIDER THAT PERFORMED THE STUDY: Petrona Tabor Type of Exam: Pelvic OB Trans Abdominal REASON FOR EXAM: Abdominal Pain VISUALIZED STRUCTURES: Gestational sac and Uterus PERTINENT FINDINGS/IMPRESSION: No apparent IUP; No free fluid Exam Complete.
[2025-05-24 15:23] LABS: Abs Immature Grans 0.06 10^3/uL (0.0-0.06); HCT 39.5 % (36.0-46.0); HGB 13.4 g/dL (11.2-15.7); Immature Grans % 0.5 %; MCH 30.0 pg (27.0-33.0); MCHC 33.9 % (32.0-36.0); MCV 89 fL (80-95); MPV 8.8 fL (8.0-11.0); Platelet Count 250 10^3/uL (130-400); RBC 4.46 10^6/uL (3.93-5.22); RDW 13.2 % (11.7-14.6); RDW-SD 42.8 fL; WBC 11.56 10^3/uL (4.4-10.8)
[2025-05-24 16:08] VITALS: BP 126/80; PULSE 56; RESP 16; O2SAT 100
[2025-05-24 16:22] LABS: ALT 28 U/L (14-59); AST 25 U/L (15-37); Albumin 3.7 g/dL (3.4-5.0); Alkaline Phosphatase 57 U/L (46-116); Anion Gap 9.3 mmol/L (3-11); BUN 8 mg/dL (7-18); Bilirubin, Total 0.8 mg/dL (0.2-1.0); CO2 20.7 mmol/L (21.0-32.0); Calcium 8.4 mg/dL (8.5-10.1); Chloride 106 mmol/L (98-107); Estimated GFR 128.46 (mL/min/1.73m2); Glucose 82 mg/dL (74-106); Magnesium 1.8 mg/dL (1.8-2.4); Potassium 3.9 mmol/L (3.5-5.1); Sodium 136 mmol/L (136-145); Total Protein 6.8 g/dL (6.4-8.2)
[2025-05-24 16:23] LABS: HCG Quant, Pregnancy 35557 mIU/mL (1-3)
[2025-05-24 18:21] VITALS: BP 143/77; PULSE 62; RESP 16; TEMP 35.8; O2SAT 100
== END 2025-05-24 18:29 | disposition home or self-care (01) ==
PROVIDERS: Emergency Provider Emergency Medicine; PCP Nurse Practitioner Adult Health
DX: O26.891 Other specified pregnancy related conditions, first trimester (principal); R10.9 Unspecified abdominal pain; O99.331 Smoking (tobacco) complicating pregnancy, first trimester; F17.210 Nicotine dependence, cigarettes, uncomplicated; Z3A.01 Less than 8 weeks gestation of pregnancy
CPT/HCPCS: 36415; 76815; 80053; 99284; 76801; 83735; 84702; 85025

== ENCOUNTER 2025-05-26 08:26 | Outpatient (CLI) | payer OTHER, SELFPAY ==
[2025-05-26 14:48] LABS: HCG Quant, Pregnancy 13407 mIU/mL (1-3)
== END 2025-05-26 08:27 | disposition home or self-care (01) ==
LOC: LBO 08:27
PROVIDERS: PCP Nurse Practitioner Adult Health; Visit Provider Obstetrics & Gynecology
DX: O20.9 Hemorrhage in early pregnancy, unspecified
CPT/HCPCS: 36415; 87529; 84702

== ENCOUNTER 2025-06-25 12:50 | Emergency (ER) | payer OTHER, SELFPAY ==
[2025-06-25 12:52] VITALS: BP 138/78; PULSE 88; RESP 18; TEMP 36.6; O2SAT 98
--- NOTE | 2025-06-25 13:00 | RT.EKG_ITS ---
APPROVED REPORT Exam: Resting ECG Reason for Exam: chest tightness Patient Location: E HR:71 bpm ECG Measurements Heart Rate 71 AXIS LA 160 P 23 QRSd 90 QRS 52 QT 371 T 14 QTc 402 Conclusion Sinus rhythm...normal P axis, V-rate 60- 99 No Occlusion CO
[2025-06-25 13:04] VITALS: BP 138/78; PULSE 88; RESP 18; TEMP 36.6; O2SAT 98
--- NOTE | 2025-06-25 13:15 | DI.RAD_ITS ---
Exam(s) XR CHEST 2V PA LATERAL EXAM: XR CHEST 2V PA LATERAL CLINICAL HISTORY: chest pain TECHNIQUE: 2D digital imaging was performed of the chest. Two images were obtained. PA and lateral views were obtained. COMPARISON: No exams were available for comparison FINDINGS: MEDIASTINUM: Normal. HEART: Normal. PULMONARY VASCULATURE: Normal. LUNGS: A question of an infiltrate in the medial aspect of the right lung base on the PA view with obscuration of the right heart border. The left lung is clear.. PLEURAL SPACE: No pleural effusion or pneumothorax. BONE:Within normal limits for the patient's age. OTHER FINDINGS:Normal. IMPRESSION: Question of a right middle lobe infiltrate. Follow-up examination in 10-14 days should be considered for re-evaluation. DATA REPOSITORY: RADIATION DOSE DELIVERED:
[2025-06-25 13:16] VITALS: RESP 18
--- NOTE | 2025-06-25 13:36 | W.EDPROG ---
Date of service: 06/25/25 Time of Service: 13:36 Medical Decision Making Quality:SDOH Health Related Social Needs: Health related social needs details N/A Discharge Plan Discharge Details Chief Complaint: GenMedical Primary Care Provider: Aziza Conley ED Provider: Vale Betancourt Home Meds and New Rx's Prescriptions: No Action sertraline 50 mg tablet 50 mg PO DAILY Qty: 90 3RF POCUS Exam (ED) Limited Cardiac Exam DATE OF EXAM: 06/25/25 TIME OF EXAM: 13:37 PROVIDER THAT PERFORMED THE STUDY: Jono Correia IS THIS A REPEAT EXAM DURING THIS ENCOUNTER: no REASON FOR EXAM: Chest pain VISUALIZED STRUCTURES: Four Chambers, Left ventricle and LVOT VIEW OBTAINED: Apical 4-Chamber, Parasternal long-axis and Subxiphoid PERTINENT FINDINGS/IMPRESSION: No pericardial effusion and No RV dilation DIFFERENTIAL DIAGNOSES: Aortic outflow track less than 4 cm, good squeeze, RV less than LV, no significant pericardial effusion. Exam complete
[2025-06-25] MEDS: Ibuprofen 600 MG TAB PO (13:57)
[2025-06-25] MEDS: Albuterol/Ipratropium 3 ML UPD VIAL UPD (13:57)
[2025-06-25 14:10] VITALS: BP 128/64; PULSE 81; RESP 18; O2SAT 98
[2025-06-25 14:26] LABS: COVID-19 PCR Negative (Negative); RSV PCR Negative (Negative)
[2025-06-25 14:52] LABS: Glucose Negative (Negative)
[2025-06-25 15:01] LABS: C & S Indicated? No; RBC 20-50 HPF (0-2); WBC 0-2 HPF (0-5)
[2025-06-25] MEDS: predniSONE 20 MG TAB 40 MG PO (15:18)
[2025-06-25] MEDS: Cyclobenzaprine 10 MG TAB, 3 TABS/BTL PO (15:19)
[2025-06-25] MEDS: Ondansetron O.D.T. 4 MG TABEF, 3 TABS/BTL PO (15:19)
[2025-06-25] MEDS: Albuterol HFA 8 GM 60 PUFF INH IH (15:20)
[2025-06-25] MEDS: Doxycycline Hyclate 100 MG, 2 CAPS/BTL PO (15:20)
[2025-06-25 15:31] VITALS: BP 141/70; PULSE 77; RESP 18; O2SAT 97
--- NOTE | 2025-06-30 13:23 | ED.GENADUL_ITS ---
Discharge Plan Disposition Patient Disposition: Home Condition: Stable Discharge Details Clinical Impression: Pneumonia Primary Care Provider: Aziza Conley ED Provider: Vale Betancourt Home Meds and New Rx's Prescriptions: New doxycycline hyclate 100 mg capsule 100 mg PO BID Qty: 10 0RF prednisone 20 mg tablet 40 mg PO ONCE Qty: 4 0RF Rx Instructions: take two tabs daily for the next 2 days Continued sertraline 50 mg tablet 50 mg PO DAILY Qty: 90 3RF Discharge Instructions Additional Instructions: Take the antibiotic as prescribed until completed Use the inhaler 2 puffs every 4-6 hours as needed for cough, wheeze, shortness of breath You have pneumonia on the right side of your lung, please have this followed up by your doctor You may take the Flexeril as needed at night for discomfort otherwise Motrin and Tylenol during the day Zofran as needed for nausea and vomiting Should you have pain lasting longer than 3 days or with any new or worsening complaints please be reevaluated in the emergency department Take the prednisone as prescribed You were given several doses of medication in the emergency department the remainder of your medications are at our pharmacy Stand Alone Forms: Work Release Referrals: Aziza Conley, MANAGER PSYCHOLOGY [Primary Care Provider, Medicine] Discharge Data Discharge Date/Time-TO BE ENTERED AT DEPARTURE: 06/25/25 15:31 HPI General Date/Time Provider Initiated Documentation: 06/25/25 12:55 . HPI Narrative: This 24-year-old female presents with report of chest tightness for the past 3 days. She states that she has had cough and runny nose. She denies any fever or chills she denies any chance of and denies any exogenous estrogen. Denies any calf pain or swelling denies history of coagulopathy. Current menses. Related Data Home Medications ?Medication ?Instructions ?Recorded ?Confirmed sertraline 50 mg tablet 50 mg PO DAILY #90 tabs 05/1906/25/25 doxycycline hyclate 100 mg capsule 100 mg PO BID #10 c aps 06/25/25 prednisone 20 mg tablet 40 mg (2 x 20 mg) PO ONCE #4 tabs 06/25/25 Previous Rx's ?Medication ?Instructions ?Recorded sertraline 50 mg tablet 50 mg PO DAILY #90 tabs 05/19 doxycycline hyclate 100 mg capsule 100 mg PO BID #10 c aps 06/25/25 prednisone 20 mg tablet 40 mg (2 x 20 mg) PO ONCE #4 tabs 06/25/25 Allergies Allergy/AdvReac Type Severity Reaction Status Date / Time No Known Allergies Allergy Verified 06/25/25 12:55 General Stated Complaint: GenMedical EUNICE: 3 Exam Narrative Exam Narrative: Well-appearing 24-year-old female in no acute distress lungs clear to auscultat ion no respiratory distress no Swelling or tenderness appreciated Course Vital Signs Vital signs: Vital Signs Temperature 36.6 C 06/25/25 12:52 Pulse 88 06/25/25 12:52 Respiratory Rate 18 06/25/25 12:52 Blood Pressure 138/78 06/25/25 12:52 Pulse Oximetry 98 06/25/25 12:52 Temperature 36.6 C 06/25/25 13:04 Pulse 77 06/25/25 15:31 Respiratory Rate 18 06/25/25 15:31 Respiratory Effort Normal, Non-Labored 06/25/25 14:10 Respiratory Depth Normal 06/25/25 14:10 Respiratory Pattern Normal 06/25/25 14:10 Blood Pressure 141/70 H 06/25/25 15:31 Blood Pressure Mean 85 06/25/25 14:10 Blood Pressure Position Sitting 06/25/25 14:10 Pulse Oximetry 97 06/25/25 15:31 Oxygen Delivery Method Room Air 06/25/25 13:04 Oxygen Flow Rate 0 06/25/25 13:04 Pain Level 4 06/25/25 13:04 Lab/Test Results Lab/Test Results: Laboratory Tests Range/Units 06/25/25 06/25/25 06/25/25 13:22 13:35 14:32 WBC Cancelled RBC Cancelled Hgb Cancelled Hct Cancelled MCV Cancelled MCH Cancelled MCHC Cancelled RDW Cancelled Plt Count Cancelled MPV Cancelled Immature Gran % Cancelled Neutrophils % Cancelled Band Neutrophils % Cancelled Lymphocytes % Cancelled Atypical Lymphs % Cancelled Monocytes % Cancelled Eosinophils % Cancelled Basophils % Cancelled Metamyelocytes % Cancelled Myelocytes % Cancelled Promyelocytes % Cancelled Other Cells % Cancelled Nucleated RBC % Cancelled Absolute Neutrophils Cancelled Absolute Lymphocytes Cancelled Absolute Monocytes Cancelled Absolute Eosinophils Cancelled Absolute Basophils Cancelled RBC Morphology Cancelled Polychromasia Cancelled Hypochromasia Cancelled Poikilocytosis Cancelled Basophilic Stippling Cancelled Anisocytosis Cancelled Microcytosis Cancelled Macrocytosis Cancelled Spherocytes Cancelled Tear Drop Cells Cancelled Ovalocytes Cancelled Stomatocytes Cancelled [place] Bodies Cancelled Etoile Cells/Echinocytes Cancelled Acanthocytes (Spur) Cancelled Schistocytes Cancelled Sodium Cancelled Potassium Cancelled Chloride Cancelled Carbon Dioxide Cancelled Anion Gap Cancelled BUN Cancelled Creatinine Cancelled Est GFR (CKD-EPI 2020) Cancelled Glucose Cancelled Calcium Cancelled Total Bilirubin Cancelled AST Cancelled ALT Cancelled Alkaline Phosphatase Cancelled Total Protein Cancelled Albumin Cancelled Lipase Cancelled Urine Color (Yellow) Yellow Urine Clarity (Clear) Clear Urine pH (5-8) 6.5 Ur Specific [place] (1.005-1.025) 1.015 Urine Protein (Neg-Trace) mg/dL Negative Urine Ketones (Negative) mg/dL Negative Urine Blood (Negative) Large H Urine Nitrite (Negative) Negative Urine Bilirubin (Negative) Negative Urine Urobilinogen (Up to 0.2) mg/dL 0.2 Ur Leukocyte Esterase (Negative) Negative Urine RBC (0-2) HPF 20-50 H Urine WBC (0-5) HPF 0-2 Ur Epithelial Cells (Negative) HPF Moderate Urine Crystals (Negative) HPF Negative Urine Bacteria (Negative) HPF Rare Urine Casts (Negative) LPF Negative Urine Mucus (Negative) Negative Ur Culture Indicated? No Urine Glucose (Negative) mg/dL Negative COVID-19 Source Nasopharynx SARS-CoV-2 (PCR) (Negative) Negative Influenza Type A (PCR) (Negative) Negative Influenza Type B (PCR) (Negative) Negative RSV (PCR) (Negative) Negative POC Urine Test Start: 06/25/25 13:34 Freq: Status: Complete Protocol: Document 06/25/25 13:35 MELBA (Rec: 06/25/25 13:35 MELBA [id number]) Test(Urine)-POC POC- Test( Negative urine) POC- Test(urine) Negative Medical Decision Making Alert and oriented 24-year-old female presenting with report of shortness of breath. Chest x-ray per radiology interpretation on my review shows evidence of possible right middle lobe infiltrate. Encouraged to have repeat x-ray upon completion of antibiotics in 2 to 3 weeks. Patient was given albuterol, prednisone, Flexeril for pain from coughing, and doxycycline for 5 days she is low risk. I did consider pulmonary embolism, however patient is pulmonary embolism rule out criteria negative. Given the threshold to return to to have n ew or worsening complaints Quality:SDOH Health Related Social Needs: Health related social needs details N/A PFSH All Active Problems (Updated 06/25/25 @ 15:07 by NATALI Orellana) Pneumonia (Acute) Nexplanon insertion (Acute) Miscarriage (Acute) Adjustment disorder with anxiety (Acute ~09/2024) Alcohol consumption binge drinking (Acute) Nicotine use disorder (Chronic) Vapes nicotine products Counseling on substance use and abuse (Acute 06/08/18) marijuana (2017) + EtOH (2023 +DUI--second one) Acne (Acute 11/27/15) followed in past by derm- had used minocycline 100 BID Medical History Self-injurious behavior (11/08/14) cutting Depression with anxiety Wears contact lenses Surgical History H/O wisdom tooth extraction Family History Mother Mental disorder anxiety/depression Father Hypertension Other Diabetes MGF, mat great GM Essential hypertension MGF Hyperlipidemia MGM, MGF Grandparent Hyperlipidemia Hypertension Maternal Grandfather Lung cancer Diabetes Social History Smoking/Tobacco Use Status: Current every day Tobacco Type: cigarettes Quit status: not considering quitting Smoking risk assessment performed?: Yes Alcohol Intake: never Drug use: Daily Substance use type: marijuana Adopted: No Caregiver/Support person: No Foster care: No Household members: family Housing: house Number of Children: 0 Communication Needs: Corrective Lenses Education Level: vocational Do you need help understanding health information?: Never current occupation: [employer] Pets and animals: Yes (6 cats, 2 dogs) Pets and animals: cat(s) and dog(s) Sexually active: Yes Do you think of yourself as: bisexual Current gender identity: female What is your relationship status?: never How often do you talk on the phone with friends or family?: never How often do you get together with friends or relatives?: once per week How often do you attend oriental orthodox or nondenominational services?: decline to answer Do you belong to any clubs or organized social groups?: no Panel score (0-1 are the most socially isolated patients): 0 What type of physical activity do you participate in: none Duration: decline to answer Frequency: decline to answer Seatbelt use: always Helmet use: No (N/A) Drive intox or ride w/intox auto driver: No Additional Social history: lives w/ parents student at [employer] [place] works 1/2 time @ [employer] Female Reproductive History Menstrual Age of Menarche: 13 History History 1 Para Hx # Term Pregnancies Multiple births Hx # Pregnancies Ectopic pregnancies AB induced 1 Hx Number of Living Children 0 AB spontaneous
== END 2025-06-25 15:31 | disposition home or self-care (01) ==
PROVIDERS: Emergency Provider Physician Assistant; PCP Nurse Practitioner Adult Health
DX: J18.9 Pneumonia, unspecified organism (principal); R07.9 Chest pain, unspecified
CPT/HCPCS: 00123; 80053; 81025; 83690; 87637; 93005; 93308; 94640; 99284; 71046; 81003; 81015; 85025; 93010; J7512; J7620

== ENCOUNTER 2025-07-01 16:45 | Emergency (ER) | payer OTHER, SELFPAY ==
[2025-07-01] VITALS (80 sets, daily range): BP systolic 125–193; BP diastolic 77–135; PULSE 70–114; RESP 13–25; TEMP 36.7–36.8; O2SAT 93–100
--- NOTE | 2025-07-01 17:09 | W.ED.GENAD ---
Discharge Plan Disposition Patient Disposition: Home Condition: Improving Discharge Details Clinical Impression: Alcohol withdrawal, Anxiety Primary Care Provider: Aziza Conley ED Provider: Josué Betancourt Meds and New Rx's Prescriptions: Continued sertraline 50 mg tablet 50 mg PO DAILY Qty: 90 3RF Discharge Instructions Instructions: Alcohol withdrawal, Alcohol Use Disorder ED, Anxiety, Adult ED Additional Instructions: Take 1 tablet of Librium every 8 hours Referrals: Aziza Conley, MARKETING STRATEGIST [Primary Care Provider, Medicine] - 3 days Discharge Data Discharge Physician: Josué Betancourt [facility] General Date/Time Provider Initiated Documentation: 07/01/25 17:09. HPI Narrative: Patient who states that she has anxiety disorder comes to the emergency department stating that she feels in that she is in alcohol withdrawal. States that she is post take Zoloft and has been taking it and drinks 1/5 of whiskey every night and stopped taking it 2 days ago started feeling very jittery anxious and panicky denies any suicidal homicidal ideation Related Data Home Medications ?Medication ?Instructions ?Recorded ?Confirmed sertraline 50 mg tablet 50 mg PO DAILY #90 tabs 06/01/25 07/01/25 Previous Rx's ?Medication ?Instructions ?Recorded sertraline 50 mg tablet 50 mg PO DAILY #90 tabs 06/01/25 Allergies Allergy/AdvReac Type Severity Reaction Status Date / Time No Known Allergies Allergy Verified 07/01/25 16:50 General Stated Complaint: ETOHWithdr EUNICE: 2 Review of Systems Narrative: Review of Systems: Constitutional: No fevers, chills, sweats Eye: No recent visual problems ENT: No ear pain, nasal congestion, sore throat Respiratory: No shortness of breath, cough Cardiovascular: No Chest pain, palpitations, syncope Gastrointestinal: No nausea, vomiting, diarrhea Genitourinary: No hematuria Kush/Lymph: Negative for bruising tendency, swollen lymph glands Endocrine: Negative for excessive thirst, excessive hunger Musculoskeletal: No back pain, neck pain, joint pain, muscle pain, decreased range of motion Integumentary: No rash, pruritus, abrasions Neurologic: Alert & oriented X 4 Psychiatric: No depression Exam Narrative Exam Narrative: Exam; vitals signs as reported above normal Constitutional; In no mild distress, afebrile General: cooperative, healthy appearing, comfortable and no acute distress anxious teary-eyed HEENT: Head: normal to inspection, no palpable skull fracture and normocephalic atraumatic Eyes: : appearance normal, both eyes and all related structures EOM intact bilaterally Pupils: PERRL : conjunctiva normal Direct ophthalmoscopy: normal light reflex, normal conjunctiva, normal visual acuity Ears: Normal TM, normal external canal Nose: normal no rhinorreha Neck no JVD, supple non tender Neck: normal visual inspection, full ROM and no lymphadenopathy Chest: normal inspection of the chest Respiratory : normal respiratory effort and able to speak in complete sentences no wheezing no rales Cardio Rate: Tachycardic rate, rhythm: regular rhythm normal heart sounds S1 and S2 no murmurs, gallops, or rubs GI : normal to inspection, normal bowel sounds, soft, non tender, non distended, no organomegaly Back/Spine/ no CVA tenderness Thoracic/Lumbar Spine: no tenderness or deformities Skin no rashes or lesions Neuro: patient alert oriented x 4 and no meningeal signs, Cranial Nerves: CN's II-XI intact bilaterally, Cognition: normal cognition, Speech: speech normal, Gait: normal gait, Depp tendon reflexes normal 2+ muscle strength 5/5 bilaterally Extremities, no edema, full range of motion, normal strength Course Vital Signs Vital signs: Vital Signs Temperature 36.7 C 07/01/25 16:46 Pulse 110 H 07/01/25 16:46 Respiratory Rate 16 07/01/25 16:46 Blood Pressure 193/135 H 07/01/25 16:46 Pulse Oximetry 98 07/01/25 16:46 Temperature 36.7 C 07/01/25 16:46 Temperature Source Oral 07/01/25 16:46 Pulse 110 H 07/01/25 16:46 Respiratory Rate 16 07/01/25 16:46 Respiratory Pattern Tachypnea 07/01/25 16:53 Blood Pressure 193/135 H 07/01/25 16:46 Blood Pressure Position Sitting 07/01/25 16:46 Pulse Oximetry 98 07/01/25 16:46 Oxygen Delivery Method Room Air 07/01/25 16:46 Oxygen Flow Rate 0 07/01/25 16:46 Pain Level 0 07/01/25 16:46 Medical Decision Making MDM: Summary: Patient presents to the emergency department with mild to moderate alcohol withdrawal after she stopped drinking 2 days ago. She denies any suicidal or homicidal ideation and feels that she is very anxious and sometimes depressed and reason she drinks alcohol. She received a banana bag thiamine vitamins folic acid as well as Ativan and Librium and will be discharged home her vital signs are stable with heart rate has gone down to the 80s and her blood pressure at 130/70. She was seen here by the recovery services and has an appointment with the highway maintenance worker and her therapist tomorrow for continuation of alcohol rehabilitation and mental health assessment Data Review Analysis All the data on this patient was reviewed by me including laboratory and imaging studies as well as bedside studies performed by me Independent review of Studies Imaging Lab: Labs are unremarkable Risk Stratification: Patient with mild to moderate alcohol withdrawal be able to discharge home she will take 1 tablet of Librium every 4 hours Differential Diagnosis: 1. Alcohol withdrawal 2. Anxiety disorder 3. Depression 4. 5. Consultants: Recovery service and [facility] crisis service Shared disposition: Patient assess disposition and agrees has a support of her mother who is with her Impression: Medical Records Medical records reviewed: Yes I reviewed the patient's medical records. Lab Data Lab results reviewed: Yes I reviewed the patient's lab results. Quality:SDOH Health Related Social Needs: Health related social needs details N/A PFSH All Active Problems (Updated 07/01/25 @ 20:46 by Josué Betancourt MD) Anxiety (Chronic) Alcohol withdrawal (Acute) Pneumonia (Acute) Nexplanon insertion (Acute) Miscarriage (Acute) Adjustment disorder with anxiety (Acute ~09/2024) Alcohol consumption binge drinking (Acute) Nicotine use disorder (Chronic) Vapes nicotine products Counseling on substance use and abuse (Acute 06/08/18) marijuana (2017) + EtOH (2023 +DUI--second one) Acne (Acute 11/27/15) followed in past by derm- had used minocycline 100 BID Medical History Self-injurious behavior (11/08/14) cutting Depression with anxiety Wears contact lenses Surgical History H/O wisdom tooth extraction Family History Mother Mental disorder anxiety/depression Father Hypertension Other Diabetes MGF, mat great GM Essential hypertension MGF Hyperlipidemia MGM, MGF Grandparent Hyperlipidemia Hypertension Maternal Grandfather Lung cancer Diabetes Social History Smoking/Tobacco Use Status: Current every day Tobacco Type: cigarettes Quit status: not considering quitting Smoking risk assessment performed?: Yes Alcohol Intake: never Drug use: Daily Substance use type: marijuana Adopted: No Caregiver/Support person: No Foster care: No Household members: family Housing: house Number of Children: 0 Communication Needs: Corrective Lenses Education Level: vocational Do you need help understanding health information?: Never current occupation: [employer] Pets and animals: Yes (6 cats, 2 dogs) Pets and animals: cat(s) and dog(s) Sexually active: Yes Do you think of yourself as: bisexual Current gender identity: female What is your relationship status?: never How often do you talk on the phone with friends or family?: never How often do you get together with friends or relatives?: once per week How often do you attend yazdanism or lutheran services?: decline to answer Do you belong to any clubs or organized social groups?: no Panel score (0-1 are the most socially isolated patients): 0 What type of physical activity do you participate in: none Duration: decline to answer Frequency: decline to answer Seatbelt use: always Helmet use: No (N/A) Drive intox or ride w/intox class c truck driver: No Additional Social history: lives w/ parents student at [employer] works / time @ [employer] Female Reproductive History Menstrual Age of Menarche: 13 History History 1 Para Hx # Term Pregnancies Multiple births Hx # Pregnancies Ectopic pregnancies AB induced 1 Hx Number of Living Children 0 AB spontaneous Vital Signs & Lab Results Vital Signs Most Recent Vital Signs: Most Recent Vital Signs Temp Pulse Resp BP Pulse Ox 36.7 C 91 H 13 141/83 H 98 07/01/25 16:46 07/01/25 18:23 07/01/25 18:23 07/01/25 18:16 07/01/25 18:23 Point of Care Results Nursing Point of Care Results: Test(urine) Negative 06/25/25, 14:47 Lab Results 07/01/25 17:32 07/01/25 17:32 Complete Blood Count: WBC, (4.4-10.8) 11.20 10^3/uL H Today, 17:32 RBC, (3.93-5.22) 5.09 10^6/uL Today, 17:32 Hgb, (11.2-15.7) 14.8 g/dL Today, 17:32 Hct, (36.0-46.0) 42.9 % Today, 17:32 Plt Count, (130-400) 430 10^3/uL H Today, 17:32 Complete Metabolic Panel: Sodium, (136-145) 140 mmol/L Today, 17:32 Potassium, (3.5-5.1) 3.1 mmol/L L Today, 17:32 Chloride, (98-107) 102 mmol/L Today, 17:32 Carbon Dioxide, (21.0-32.0) 24.8 mmol/L Today, 17:32 BUN, (7-18) 8 mg/dL Today, 17:32 Creatinine, (0.55-1.02) 1.0 mg/dL Today, 17:32 Est GFR (CKD-EPI 2020), (mL/min/1.73m2) 80.68 Today, 17:32 Magnesium, (1.8-2.4) 1.9 mg/dL Today, 17:32 Calcium, (8.5-10.1) 9.9 mg/dL Today, 17:32 Albumin, (3.4-5.0) 4.4 g/dL Today, 17:32 Glucose, (74-106) 135 mg/dL H Today, 17:32 Liver Function Panel: ALT, (14-59) 31 U/L Today, 17:32 AST, (15-37) 21 U/L Today, 17:32 Infectious Disease: SARS-CoV-2 (PCR), (Negative) Negative 06/25/25, 13:35 COVID-19 Source Nasopharynx 06/25/25, 13:35 Influenza Type A (PCR), (Negative) Negative 06/25/25, 13:35 Influenza Type B (PCR), (Negative) Negative 06/25/25, 13:35 RSV (PCR), (Negative) Negative 06/25/25, 13:35 Toxicology Panel: Ethyl Alcohol, (<10) < 3.0 mg/dL Today, 17:32
[2025-07-01 18:04] LABS: ALT 31 U/L (14-59); AST 21 U/L (15-37); Abs Immature Grans 0.04 10^3/uL (0.0-0.06); Albumin 4.4 g/dL (3.4-5.0); Alkaline Phosphatase 111 U/L (46-116); Anion Gap 13.2 mmol/L (3-11); BUN 8 mg/dL (7-18); Bilirubin, Total 2.1 mg/dL (0.2-1.0); CO2 24.8 mmol/L (21.0-32.0); Calcium 9.9 mg/dL (8.5-10.1); Chloride 102 mmol/L (98-107); Estimated GFR 80.68 (mL/min/1.73m2); Glucose 135 mg/dL (74-106); HCT 42.9 % (36.0-46.0); HGB 14.8 g/dL (11.2-15.7); Immature Grans % 0.4 %; MCH 29.1 pg (27.0-33.0); MCHC 34.5 % (32.0-36.0); MCV 84 fL (80-95); MPV 8.8 fL (8.0-11.0); Magnesium 1.9 mg/dL (1.8-2.4); Platelet Count 430 10^3/uL (130-400); Potassium 3.1 mmol/L (3.5-5.1); RBC 5.09 10^6/uL (3.93-5.22); RDW 12.4 % (11.7-14.6); RDW-SD 37.8 fL; Sodium 140 mmol/L (136-145); Total Protein 8.3 g/dL (6.4-8.2); WBC 11.20 10^3/uL (4.4-10.8)
[2025-07-01] MEDS: LORazepam 1 MG TAB PO/SL (18:08)
[2025-07-01] MEDS: MULTIVITAMIN 10 ML, THIAMINE 100 MG, FOLIC ACID 1 MG in DEXTROSE 5%-0.45% SALINE 1,000 ML 42 ML IV ×2 (18:12→18:14)
--- NOTE | 2025-07-01 19:51 | NUR.NOTE ---
Rn spoke with [facility] and they said they would come in to evaluate the PT but it will be an extended amount of time before they can get here to see her. They stated that she could be evaluated outpatient tonight if she is DCed. Nursing Note:
--- NOTE | 2025-07-01 20:06 | NUR.NOTE ---
[facility] to come evaluate the PT Nursing Note:
[2025-07-01] MEDS: chlordiazePOXIDE 25 MG CAP 100 MG PO (21:01)
== END 2025-07-01 21:18 | disposition home or self-care (01) ==
PROVIDERS: Emergency Provider Emergency Medicine Emergency Medical Services; PCP Nurse Practitioner Adult Health
DX: F10.930 Alcohol use, unspecified with withdrawal, uncomplicated (principal); F41.9 Anxiety disorder, unspecified
CPT/HCPCS: 36415; 80053; 85027; 96365; 96366; 99284; 80320; 83735; 85025; J3411

== ENCOUNTER 2025-09-07 17:11 | Outpatient (CLI) | payer OTHER, SELFPAY ==
[2025-09-08 18:42] LABS: HIV-1/2 Ag & Ab Screen Negative (Negative)
[2025-09-08 18:46] LABS: Hepatitis C Ab w Rflx HCV PCR Negative (Negative)
[2025-09-10 23:28] LABS: HSV 1 PCR, B Negative (Negative); HSV 2 PCR, B Negative (Negative)
[2025-09-11 12:08] LABS: Syphilis Serology (RPR) Negative (Negative)
[2025-09-11 13:17] LABS: GC Result Negative (Negative)
[2025-09-11 13:35] LABS: Chlamydia Result Positive (Negative)
== END 2025-09-07 17:12 | disposition home or self-care (01) ==
LOC: LBO 17:11 → LBN 19:07
PROVIDERS: Emergency Medicine; PCP Nurse Practitioner Adult Health; Visit Provider Family Medicine
DX: Z11.3 Encounter for screening for infections with a predominantly sexual mode of transmission (principal)
CPT/HCPCS: 36415; 86803; 87389; 87491; 87529; 87591; 86592; 87480; 87510; 87660

== ENCOUNTER 2025-09-20 14:41 | Outpatient (REF) | payer OTHER, SELFPAY | END 2025-09-20 14:42 | disposition home or self-care (01) | LOC: LBN 14:41 | PROVIDERS: PCP Nurse Practitioner Adult Health; Visit Provider Nurse Practitioner Adult Health | DX: Z11.3 Encounter for screening for infections with a predominantly sexual mode of transmission (principal) | CPT/HCPCS: 87480; 87510; 87660 ==